=== PATIENT | male | born 1980 | race Caucasian/White ===

== ENCOUNTER 2024-04-27 17:52 | Emergency (ER) | payer OTHER ==
[~2024-04-27] VITALS: Ht 177.8 cm; Wt 95.5 kg
[~2024-04-27 17:52] MED LIST: OMEP1CAP73 PO
[2024-04-27 17:54] VITALS: TEMP 99.8
[2024-04-27 19:52] VITALS: BP 129/92; O2SAT 98
== END 2024-04-27 19:53 | disposition home or self-care (01) ==
LOC: M ED 17:52
DX: S46.221A Laceration of muscle, fascia and tendon of other parts of biceps, right arm, initial encounter (principal); Y92.9 Unspecified place or not applicable; Y93.9 Activity, unspecified; Y99.9 Unspecified external cause status; Z79.899 Other long term (current) drug therapy

== ENCOUNTER 2024-05-03 08:25 | Day surgery (SDC) | payer OTHER ==
[~2024-05-03] VITALS: Ht 177.8 cm; Wt 95.1 kg
[2024-05-03] MEDS ORDERED: propofoL 200 MG/20 ML VIAL As Ordered ONE (09:44)
[2024-05-03] MEDS ORDERED: LIDOCAINE 2% 100MG/5ML SDV (FOR ANES.) As Ordered ONE (09:44)
[2024-05-03 10:00] VITALS: TEMP 97.1
[2024-05-03 10:16] VITALS: BP 116/71; O2SAT 95
== END 2024-05-03 10:27 | disposition home or self-care (01) ==
LOC: M OPP 08:25
PROVIDERS: ATTEND Surgery
DX: K20.90 Esophagitis, unspecified without bleeding (principal); K44.9 Diaphragmatic hernia without obstruction or gangrene; K31.89 Other diseases of stomach and duodenum; R13.10 Dysphagia, unspecified; Z79.899 Other long term (current) drug therapy

== ENCOUNTER → 2024-05-08 | Outpatient (CLI) | payer OTHER | LOC: M SOG 13:55 | PROVIDERS: ATTEND Orthopaedic Surgery | DX: S46.211A Strain of muscle, fascia and tendon of other parts of biceps, right arm, initial encounter (principal); W18.30XA Fall on same level, unspecified, initial encounter; Y92.009 Unspecified place in unspecified non-institutional (private) residence as the place of occurrence of the external cause ==

== ENCOUNTER → 2024-05-09 | Outpatient (CLI) | payer OTHER ==
[~2024-05-09] MED LIST changes: +PERC5TAB12 PO
== END ==
LOC: M RAD 09:03
PROVIDERS: ATTEND Physician Assistant
DX: S46.211A Strain of muscle, fascia and tendon of other parts of biceps, right arm, initial encounter (principal); Z13.89 Encounter for screening for other disorder

== ENCOUNTER → 2024-05-09 | Outpatient (CLI) | payer OTHER ==
[~2024-05-09] MED LIST changes: -PERC5TAB12 PO
[2024-05-09 12:23] LABS: BASO # 0.1 10^3/uL (0.0-0.2); BASO % 0.8 % (0.0-1.0); EOS # 0.4 10^3/uL (0.0-0.5); EOS % 6.8 % (0.0-3.0); HEMATOCRIT 47.5 % (42.0-52.0); LYMPH % 30.9 % (24.0-44.0); MEAN CORPUSCULAR HEMOGLOBIN 28.5 pg (27.0-33.0); MEAN CORPUSCULAR HGB CONC 33.7 g/dl (32.0-36.5); MEAN CORPUSCULAR VOLUME 84.5 fl (80.0-96.0); MONO # 0.5 10^3/uL (0.0-0.8); MONO % 7.3 % (2.0-8.0); NEUTROPHILS # 3.5 10^3/uL (1.5-8.5); NEUTROPHILS % 53.7 % (36.0-66.0); PLATELET COUNT, AUTOMATED 269 10^3/uL (150-450); RED BLOOD COUNT 5.62 10^6/uL (4.30-6.10); WHITE BLOOD COUNT 6.4 10^3/uL (4.0-10.0)
[2024-05-09 12:41] LABS: INR 0.91; PROTHROMBIN TIME 12.6 SECONDS (12.5-14.5)
[2024-05-09 12:56] LABS: ALBUMIN 3.9 G/DL (3.2-5.2); ALKALINE PHOSPHATASE 67 U/L (40-129); ALT/SGPT 24 U/L (7.0-40); AST/SGOT 15 U/L (<34); BILIRUBIN,TOTAL 0.7 MG/DL (0.3-1.2); BLOOD UREA NITROGEN 19 MG/DL (9-23); CARBON DIOXIDE LEVEL 28 MMOL/L (20-31); CHLORIDE LEVEL 105 MMOL/L (98-107); CREATININE FOR GFR 1.04 MG/DL (0.70-1.30); GLOMERULAR FILTRATION RATE > 60.0 (>60); GLUCOSE, FASTING 83 MG/DL (60-100); POTASSIUM SERUM 4.6 MMOL/L (3.5-5.1); SODIUM LEVEL 143 MMOL/L (136-145); TOTAL PROTEIN 7.3 G/DL (5.7-8.2)
== END ==
LOC: M LAB 11:09
PROVIDERS: ATTEND Orthopaedic Surgery
DX: S46.211A Strain of muscle, fascia and tendon of other parts of biceps, right arm, initial encounter (principal); W18.30XA Fall on same level, unspecified, initial encounter; Y92.009 Unspecified place in unspecified non-institutional (private) residence as the place of occurrence of the external cause

== ENCOUNTER 2024-05-13 08:51 | Day surgery (SDC) | payer OTHER ==
[~2024-05-13] VITALS: Ht 177.8 cm; Wt 96.4 kg
[2024-05-13] MEDS ORDERED: LR 1,000 ML IV SCH ×2 (09:15→12:30)
[2024-05-13] MEDS ORDERED: POLYSPORIN TOPICAL OINTMENT 15GM As Ordered ONE (09:58)
[2024-05-13] MEDS ORDERED: MIDAZOLAM INJ 2MG/2ML VIAL As Ordered ONE (10:02)
[2024-05-13] MEDS ORDERED: propofoL 200 MG/20 ML VIAL As Ordered ONE (10:02)
[2024-05-13] MEDS ORDERED: LIDOCAINE 2% 100MG/5ML SDV (FOR ANES.) As Ordered ONE (10:02)
[2024-05-13] MEDS ORDERED: fentaNYL 100 MCG/2 ML INJECTION As Ordered ONE (10:03)
[2024-05-13] MEDS ORDERED: ONDANSETRON 4MG 2ML VIAL As Ordered ONE (10:49)
[2024-05-13] MEDS ORDERED: ceFAZolin SOD 2 GM IV ONCE IV ONE (10:50)
[2024-05-13] MEDS: ceFAZolin SODIUM 2 GM VIAL As Ordered ONE (10:54)
[2024-05-13] MEDS ORDERED: ACETAMINOPHEN 1000MG/100ML IV BAG As Ordered ONE (10:55)
[2024-05-13] MEDS: BUPivacaine LIPOSOME/PF 266MG 20ML VIAL (13.3MG/ML)(EXPAREL) As Ordered ONE (12:15)
[2024-05-13] MEDS ORDERED: HYDROMORPHONE HCL 0.5 MG/ 0.5 ML SYRINGE IV PRN (12:30)
[2024-05-13] MEDS ORDERED: ONDANSETRON 4MG 2ML VIAL IV PRN (12:30)
[2024-05-13] MEDS ORDERED: fentaNYL 100 MCG/2 ML INJECTION IV PRN (12:30)
[2024-05-13] MEDS: oxyCODONE 5MG TAB PO PRN (12:53)
[2024-05-13] MEDS ORDERED: PERC5TAB12 PO (12:55)
[2024-05-13 13:30] VITALS: BP 136/78; TEMP 97.8; O2SAT 98
== END 2024-05-13 14:05 | disposition home or self-care (01) ==
LOC: M SDC 08:51
PROVIDERS: ATTEND Orthopaedic Surgery
DX: S46.211A Strain of muscle, fascia and tendon of other parts of biceps, right arm, initial encounter (principal); X58.XXXA Exposure to other specified factors, initial encounter; K21.9 Gastro-esophageal reflux disease without esophagitis; Z79.899 Other long term (current) drug therapy
CPT/HCPCS: 24342; 76000; C1713; J0131; J0665; J0666; J0690; J1100; J2250; J2405; J3010

== ENCOUNTER → 2024-10-11 | Outpatient (CLI) | payer OTHER ==
[~2024-10-11] MED LIST changes: +PERC5TAB12 PO
== END ==
LOC: M SOG 06:53
PROVIDERS: ATTEND Orthopaedic Surgery
DX: S46.211D Strain of muscle, fascia and tendon of other parts of biceps, right arm, subsequent encounter (principal); W18.30XD Fall on same level, unspecified, subsequent encounter